=== PATIENT | female | born 1990 | race Caucasian/White ===

== ENCOUNTER 2016-08-28 22:30 | Emergency (ER) | payer MEDICAID ==
[2016-08-29 00:21] VITALS: BP 112/66
== END 2016-08-29 00:21 | disposition home or self-care (01) ==
LOC: ED 22:30
DX: M25.561 Pain in right knee (principal); R22.41 Localized swelling, mass and lump, right lower limb

== ENCOUNTER 2016-09-29 05:35 | Emergency (ER) | payer MEDICAID ==
[2016-09-29 06:29] VITALS: BP 116/67
[2016-09-29 06:39] LABS: AMPHETAMINE QUAL UR POSITIVE (NEG <=1000)
== END 2016-09-29 07:30 | disposition home or self-care (01) ==
LOC: ED 05:35
PROVIDERS: Emergency Medicine
DX: R41.82 Altered mental status, unspecified (principal); G47.00 Insomnia, unspecified; R82.99 Other abnormal findings in urine
CPT/HCPCS: G0480